=== PATIENT | male | born 1980 | race Caucasian/White ===

== ENCOUNTER 2017-02-23 23:31 | Emergency (ER) | payer OTHER ==
[2017-02-23] MEDS ORDERED: KLONOPIN1 MG PO (23:38)
[2017-02-23] MEDS ORDERED: METFORMIN PO (23:39)
[2017-02-23] MEDS ORDERED: SINGULAIR (23:39)
[2017-02-23] MEDS ORDERED: ATORVASTATIN CA10 MG PO (23:39)
[2017-02-23] MEDS ORDERED: PROZAC40 MG PO (23:39)
[2017-02-23] MEDS ORDERED: CLARITIN10 M3 (23:40)
[2017-02-23] MEDS ORDERED: ASPIRIN81 MG (23:40)
[2017-02-23] MEDS ORDERED: CATAPRES0.1 MG (23:41)
== END 2017-02-24 00:30 | disposition home or self-care (01) ==
LOC: SED 23:31
DX: H66.91 Otitis media, unspecified, right ear (principal); E11.9 Type 2 diabetes mellitus without complications; I10 Essential (primary) hypertension; E78.5 Hyperlipidemia, unspecified; F17.200 Nicotine dependence, unspecified, uncomplicated
CPT/HCPCS: 99282